=== PATIENT | female | born 1990 | race Hispanic/Latino ===

== ENCOUNTER 2018-11-01 11:03 | Outpatient (CLI) | payer BC ==
--- NOTE | 2018-11-01 12:17 | ULT ---
LIMIED ULTRASOUND LEFT AXILLARY REGION: Date: 11/01/18 HISTORY: Palpable abnormality. FINDINGS: There is no solid or cystic lesion seen I the left axillary region. There is a small hypoechoic struc ture with central area of echogenicity which demonstrates characteristics compatible with a lymph nod e measuring approximately 7.0 mm in short axis dimension and is not enlarged. No other findings. IMPRESSION: No mass or cystic lesion is seen in the left axillary region to correspond to patient's palpable abno rmality. There is a small, nonenlarged lymph node seen within the axillary region, but this is not th ought to correspond to the patient's palpable abnormality given the very small size and depth of this lymph node with respect to the skin surface. Palpable abnormality should be further managed clinical ly. POS: [facility]
== END 2018-11-01 11:04 | disposition home or self-care (01) ==
LOC: BICULT 11:03
PROVIDERS: ATTEND Obstetrics & Gynecology
DX: N63.20 Unspecified lump in the left breast, unspecified quadrant (principal)